=== PATIENT | female | born 1995 | race Caucasian/White ===

== ENCOUNTER 2020-01-05 20:20 | Emergency (ER) | payer OTHER ==
[~2020-01-05] VITALS: Ht 170.2 cm; Wt 90.9 kg
[2020-01-05] MEDS ORDERED: diphenhydrAMINE 25mg capsule PO ONE (20:50)
[2020-01-05 21:17] VITALS: BP 156/78
== END 2020-01-05 21:10 | disposition home or self-care (01) ==
LOC: ER 20:20
DX: T63.441A Toxic effect of venom of bees, accidental (unintentional), initial encounter (principal); Z72.89 Other problems related to lifestyle; Y92.89 Other specified places as the place of occurrence of the external cause
CPT/HCPCS: 99282; Q0163